=== PATIENT | female | born 1995 | race Caucasian/White ===

== ENCOUNTER → 2017-10-09 | Outpatient (CLI) | payer OTHER ==
--- NOTE | 2017-10-10 08:25 | RAD ---
2 views of the abdomen 10/10/2017 Indication: Abdominal pain Comparison study: None Findings: The bowel gas pattern is nonobstructive. No gross pneumoperitoneum is identified. No acute osseous changes are seen. Probable tampon within the vagina. Impression: No radiographic evidence of acute intra-abdominal abnormality
== END | disposition home or self-care (01) ==
LOC: PMG 10:49
PROVIDERS: ATTEND Nurse Practitioner Family
DX: R10.9 Unspecified abdominal pain (principal)
CPT/HCPCS: 74021

== ENCOUNTER → 2017-10-17 | Outpatient (CLI) | payer OTHER ==
--- NOTE | 2017-10-17 09:48 | RAD ---
Complete abdominal ultrasound History: Right upper quadrant pain for 4 days. Comparison: CT abdomen pelvis March 17, 2013. Procedure: Transabdominal ultrasound images are obtained. Findings: Visualized pancreas is unremarkable. Liver is normal in echogenicity. Within the right hepatic lobe, there is a hyperechoic well-circumscribed mass which measures 1.9 cm maximum dimension. This location on the comparison study, there was a 1.2 cm low-attenuation structure. Given patient's age and if no history of malignancy, this probably represents hemangioma. Gallbladder has an unremarkable appearance. Common bile duct measures normally at 4 mm in diameter. Spleen is unremarkable. Splenic length is 12.9 centimeters, thought borderline enlarged. Right kidney is normal in size and configuration without hydronephrosis. Left kidney is normal in size and configuration without hydronephrosis. Visualized portions of the aorta and IVC have normal caliber. Impression: 1. No evidence of gallbladder pathology. 2. Right hepatic lobe demonstrates 1.9 cm hyperechoic mass. Given patient's age and if no risk factors for primary or secondary hepatic malignancy, this probably represents hemangioma. Recommend clinical correlation. If clinically indicated, further evaluation could be made with liver mass protocol MRI versus follow-up ultrasound in 6 months to ensure stability. 3. Borderline splenomegaly.
== END | disposition home or self-care (01) ==
LOC: US 07:46
PROVIDERS: ATTEND Nurse Practitioner Family
DX: R10.11 Right upper quadrant pain (principal)
CPT/HCPCS: 76700